=== PATIENT | male | born 1940 | race Caucasian/White ===

== ENCOUNTER → 2019-09-21 | Day surgery (SDC) | payer OTHER ==
[~2019-09-21] VITALS: Ht 180.3 cm; Wt 81.6 kg
[~2019-09-21] MED LIST: AZIL40TA3 PO; BUPIVACAINE 0.25% INJ 50ML VIAL ONE; DILT240C35 PO; DOCU100T15 PO; ETOMIDATE (2MG/ML) 20ML VIAL IV ONE; HYDR-4833 PO; HYDROmorphone HCL 2 MG/ML VL IV PRN; LIDOCAINE 1% (LOCAL ANESTH.) PF 5ml SDV ONE; LIDOCAINE 1% HCL (LOCAL ANESTH.) INJ 20ML MDV ONE; LIDOCAINE HCL 2% TOP JELLY 5ML TOP ONE; METOCLOPRAMIDE HCL 5MG/ml INJ 2ml VIAL ONE; MIDAZOLAM HCL 1MG/1ML-2 ML VIAL ONE; NALOXONE HCL 0.4 MG/ML VIAL IV PRN; ONDANSETRON HCL 4 MG/2 ML VIAL IV PRN; PROPOFOL 10 MG/ML 20 ML IV ONE; SUCCINYLCHOLINE CHLORIDE 20 MG/ML 10ML VIAL IV ONE; ceFAZolin 1GM/50ML 100 ML IV ONE; fentaNYL CITRATE 100 MCG/2 ML VL ONE
[2019-09-21] MEDS: HYDROmorphone HCL 2 MG/ML VL IV PRN ×2 (09:28→09:38)
[2019-09-21 10:05] VITALS: BP 141/67
== END | disposition home or self-care (01) ==
LOC: SUR 05:45
PROVIDERS: ATTEND Orthopaedic Surgery Adult Reconstructive Orthopaedic Surgery
DX: S52.571A Other intraarticular fracture of lower end of right radius, initial encounter for closed fracture (principal); I12.9 Hypertensive chronic kidney disease with stage 1 through stage 4 chronic kidney disease, or unspecified chronic kidney disease; N18.3 Chronic kidney disease, stage 3 (moderate); R73.03 Prediabetes; Z79.899 Other long term (current) drug therapy; Z98.890 Other specified postprocedural states; W19.XXXA Unspecified fall, initial encounter; Y93.89 Activity, other specified; Y92.89 Other specified places as the place of occurrence of the external cause; Y99.8 Other external cause status
CPT/HCPCS: 25609; 73100; C1713; J0330; J0690; J1170; J2001; J2250; J2704; J2765; J3010; J3490; 76001

== ENCOUNTER 2020-11-27 08:09 | Day surgery (SDC) | payer OTHER ==
[2020-11-22 10:49] LABS: Basophils # (auto) 0.1 10 ^3/uL (0-0.2); Eosinophils # (auto) 0.3 10 ^3/uL (0-0.8); Eosinophils % (auto) 4.5 % (0.0-7.0); Hematocrit 34.2 % (41.0-53.0); Hemoglobin 11.9 g/dL (13.5-17.5); Lymphocytes # (auto) 1.2 10 ^3/uL (0.4-5.4); Lymphocytes % (auto) 21.1 % (10.0-50.0); Mean Corpuscular Hemoglobin 30.4 pg (28.0-32.0); Mean Corpuscular Hgb Conc. 34.9 g/dL (32.0-36.0); Mean Corpuscular Volume 87.1 fL (80.0-100.0); Monocytes # (auto) 0.6 10 ^3/uL (0-1.3); Neutrophils # (auto) 3.5 10 ^3/uL (1.6-8.6); Neutrophils % (auto) 63.4 % (37.0-80.0); Red Blood Cells 3.93 10^6/uL (4.5-5.90); Red Cell Distribution Width 14.3 % (11.8-14.3); White Blood Cell 5.6 10^3/uL (4.4-10.8)
[2020-11-22 10:52] LABS: Urine Bacteria NONE SEEN /hpf (None Seen); Urine Blood TRACE /uL (Negative); Urine Specific Gravity 1.009 (1.001-1.035); Urine WBC 1 /hpf (0 - 3)
[2020-11-22 11:06] LABS: INR 1.05 (0.9-1.15); Partial Thromboplastin Time 31.1 sec (23.0-31.2)
[2020-11-22 11:28] LABS: Albumin 3.2 g/dL (3.4-5.0); Calcium 9.2 mg/dL (8.5-10.1); Potassium 4.4 mmol/L (3.5-5.1)
[2020-11-22 11:32] LABS: BUN/Creatinine Ratio 8.9; Bilirubin, Total 0.6 mg/dL (0.2-1.0); Total Protein 7.1 g/dL (6.4-8.2)
[~2020-11-27] VITALS: Ht 180.3 cm; Wt 86.2 kg
[~2020-11-27 08:09] MED LIST changes: -AZIL40TA3 PO; -BUPIVACAINE 0.25% INJ 50ML VIAL ONE; +CLON0.1T PO; -DOCU100T15 PO; -ETOMIDATE (2MG/ML) 20ML VIAL IV ONE; -HYDR-4833 PO; -HYDROmorphone HCL 2 MG/ML VL IV PRN; -LIDOCAINE 1% (LOCAL ANESTH.) PF 5ml SDV ONE; -LIDOCAINE 1% HCL (LOCAL ANESTH.) INJ 20ML MDV ONE; -LIDOCAINE HCL 2% TOP JELLY 5ML TOP ONE; -METOCLOPRAMIDE HCL 5MG/ml INJ 2ml VIAL ONE; -MIDAZOLAM HCL 1MG/1ML-2 ML VIAL ONE; -NALOXONE HCL 0.4 MG/ML VIAL IV PRN; -ONDANSETRON HCL 4 MG/2 ML VIAL IV PRN; -PROPOFOL 10 MG/ML 20 ML IV ONE; -SUCCINYLCHOLINE CHLORIDE 20 MG/ML 10ML VIAL IV ONE; -ceFAZolin 1GM/50ML 100 ML IV ONE; -fentaNYL CITRATE 100 MCG/2 ML VL ONE
[2020-11-27] MEDS ORDERED: ceFAZolin 1GM/50ML 50 ML IV ONE (08:32)
[2020-11-27] MEDS ORDERED: dilTIAZem 120MG ER CAP PO ONE (09:00)
[2020-11-27] MEDS ORDERED: ROCURONIUM 10MG/ML 10ML VIAL IV ONE (09:38)
[2020-11-27] MEDS ORDERED: LIDOCAINE 2% (LOCAL ANESTH.) PF 5ml SDV ONE (09:38)
[2020-11-27] MEDS ORDERED: MIDAZOLAM HCL 2MG/2ML 2ml VIAL (1mg/ml) ONE (09:38)
[2020-11-27] MEDS ORDERED: PROPOFOL 10 MG/ML 20 ML IV ONE (09:38)
[2020-11-27] MEDS ORDERED: fentaNYL CITRATE 100 MCG/2 ML VL ONE (09:39)
[2020-11-27] MEDS ORDERED: BUPIVACAINE W/ EPINEPH 0.25% INJ 50ML MDV ONE (10:04)
[2020-11-27] MEDS ORDERED: GLYCOPYRROLATE 0.2 MG/ML 1ML VIAL ONE (10:47)
[2020-11-27] MEDS ORDERED: NEOSTIGMINE 1 MG/ML INJ (10mg/10ML VIAL) ONE (10:47)
[2020-11-27 11:15] VITALS: BP 167/75
[2020-11-27] MEDS ORDERED: ONDANSETRON HCL 4 MG/2 ML VIAL IV PRN (11:15)
== END 2020-11-27 11:32 | disposition home or self-care (01) ==
LOC: SUR 08:09
PROVIDERS: ATTEND Surgery
DX: Z49.01 Encounter for fitting and adjustment of extracorporeal dialysis catheter (principal); I12.0 Hypertensive chronic kidney disease with stage 5 chronic kidney disease or end stage renal disease; N18.6 End stage renal disease; D64.9 Anemia, unspecified; Z20.822 Contact with and (suspected) exposure to COVID-19; Z98.890 Other specified postprocedural states; Z79.899 Other long term (current) drug therapy
CPT/HCPCS: 36415; 49324; 80053; 81001; 85025; 85610; 85730; J0690; J2001; J2250; J2704; J3010; J7030; U0003

== ENCOUNTER → 2021-09-03 | Day surgery (SDC) | payer OTHER ==
[~2021-09-03] VITALS: Ht 177.8 cm; Wt 77.1 kg
[~2021-09-03] MED LIST changes: +BUPIVACAINE 0.5% MPF INJ 30ML SDV IJ ONE; -CLON0.1T PO; +DexAMETHasone SOD PHOS 10MG/1ML VIAL INJ ONE; +FURO20TA3 PO; +HYDROmorphone HCL 2 MG/ML VL IV PRN; +LABETALOL HCL 5 MG/ML 4ML SYRINGE IV PRN; +LIDOCAINE 1%-Mpf/Epinephrine 1:200,000 ONE; +LIDOCAINE W/ EPINEPHRINE 1% 20ML VIAL ONE; +MIDAZOLAM HCL 2MG/2ML 2ml VIAL (1mg/ml) IV PRN; +MIDAZOLAM HCL 2MG/2ML 2ml VIAL (1mg/ml) ONE; +MORPHINE SULFATE 4 MG/ML SYR/VIAL IV PRN; +ONDANSETRON HCL 4 MG/2 ML VIAL IV PRN; +ceFAZolin 1GM/50ML 100 ML IV ONE; +diphenhdrAMINE HCL 50 MG/1 ML VL ONE; +ePHEDrine SULFATE 50 MG/ML AMP IV PRN; +fentaNYL CITRATE 100 MCG/2 ML VL ONE
[2021-09-03 10:00] VITALS: BP 149/73
== END | disposition home or self-care (01) ==
LOC: SUR 06:14
PROVIDERS: ATTEND Surgery
DX: K40.20 Bilateral inguinal hernia, without obstruction or gangrene, not specified as recurrent (principal); I12.0 Hypertensive chronic kidney disease with stage 5 chronic kidney disease or end stage renal disease; N18.6 End stage renal disease; I25.10 Atherosclerotic heart disease of native coronary artery without angina pectoris; Z98.41 Cataract extraction status, right eye; Z87.891 Personal history of nicotine dependence; Z98.42 Cataract extraction status, left eye; Z99.2 Dependence on renal dialysis; Z20.822 Contact with and (suspected) exposure to COVID-19
CPT/HCPCS: 49505; 86850; 86900; 86901; J0690; J1100; J1200; J2001; J2250; J3010; J3490; Q4140; U0003

== ENCOUNTER 2023-06-01 10:11 | Inpatient (IN) | payer OTHER ==
[~2023-06-01] VITALS: Ht 175.3 cm; Wt 85.1 kg
[~2023-06-01 10:11] MED LIST changes: -BUPIVACAINE 0.5% MPF INJ 30ML SDV IJ ONE; -DexAMETHasone SOD PHOS 10MG/1ML VIAL INJ ONE; -HYDROmorphone HCL 2 MG/ML VL IV PRN; -LABETALOL HCL 5 MG/ML 4ML SYRINGE IV PRN; -LIDOCAINE 1%-Mpf/Epinephrine 1:200,000 ONE; -LIDOCAINE W/ EPINEPHRINE 1% 20ML VIAL ONE; -MIDAZOLAM HCL 2MG/2ML 2ml VIAL (1mg/ml) IV PRN; -MIDAZOLAM HCL 2MG/2ML 2ml VIAL (1mg/ml) ONE; -MORPHINE SULFATE 4 MG/ML SYR/VIAL IV PRN; -ONDANSETRON HCL 4 MG/2 ML VIAL IV PRN; -ceFAZolin 1GM/50ML 100 ML IV ONE; -diphenhdrAMINE HCL 50 MG/1 ML VL ONE; -ePHEDrine SULFATE 50 MG/ML AMP IV PRN; -fentaNYL CITRATE 100 MCG/2 ML VL ONE
[2023-06-01 12:14] LABS: Basophils # (auto) 0.1 10 ^3/uL (0-0.2); Basophils % (auto) 0.8 % (0.0-2.0); Eosinophils # (auto) 0.4 10 ^3/uL (0-0.8); Eosinophils % (auto) 5.7 % (0.0-7.0); Hematocrit 32.5 % (41.0-53.0); Lymphocytes % (auto) 14.3 % (10.0-50.0); Mean Corpuscular Hemoglobin 32.6 pg (28.0-32.0); Mean Corpuscular Hgb Conc. 33.9 g/dL (32.0-36.0); Mean Corpuscular Volume 96.1 fL (80.0-100.0); Monocytes # (auto) 0.5 10 ^3/uL (0-1.3); Monocytes % (auto) 6.6 % (0.0-12.0); Neutrophils # (auto) 5.1 10 ^3/uL (1.6-8.6); Neutrophils % (auto) 72.6 % (37.0-80.0); Red Blood Cells 3.38 10^6/uL (4.5-5.90)
[2023-06-01 12:31] LABS: INR 1.14 (0.9-1.15); Partial Thromboplastin Time 36.6 SEC (24.5-34.5); Prothrombin Time 11.9 sec (9.3-11.8)
[2023-06-01 12:46] LABS: Alanine Aminotransferase 24 U/L (7-40); Albumin 3.7 g/dL (3.2-4.8); Alkaline Phosphatase 70 U/L (46-116); Anion Gap 16.8 (5-15); Aspartate Aminotransferase 25 U/L (13-40); BUN/Creatinine Ratio 4.7 (10.0-20.0); Bilirubin, Total 0.2 mg/dL (0.2-1.0); Blood Urea Nitrogen 79 mg/dL (9-23); Calcium 8.7 mg/dL (8.5-10.1); Carbon Dioxide 21.2 mmol/L (20-30); Chloride 98 mmol/L (98-107); Glucose 84 mg/dL (74-106); Potassium 4.8 mmol/L (3.5-5.1); Sodium 136 mmol/L (136-145)
[2023-06-01 12:47] LABS: Total Protein 7.1 g/dL (5.7-8.2)
[2023-06-01] MEDS ORDERED: GASTROGRAFIN 120 ML SOL ONE (13:50)
[2023-06-01] MEDS ORDERED: NITROGLYCERIN 0.4 MG SL TAB SL PRN (16:00)
[2023-06-01] MEDS ORDERED: MORPHINE SULFATE INJ 2 MG/ml SYRG IV PRN (16:00)
[2023-06-01 17:00] VITALS: PULSE 73; RESP 18; O2SAT 98
[2023-06-01] MEDS: hydrALAZINE HCL 20 MG/ML VL IV PRN (17:47)
[2023-06-01 19:25] VITALS: PULSE 85; RESP 18; O2SAT 94
[2023-06-02 05:53] LABS: Anion Gap 17.3 (5-15); Carbon Dioxide 21.7 mmol/L (20-30); Chloride 99 mmol/L (98-107); Potassium 4.6 mmol/L (3.5-5.1); Sodium 138 mmol/L (136-145)
[2023-06-02 05:54] LABS: Calcium 8.6 mg/dL (8.5-10.1)
[2023-06-02 05:59] LABS: BUN/Creatinine Ratio 5.2 (10.0-20.0); Basophils # (auto) 0.1 10 ^3/uL (0-0.2); Basophils % (auto) 0.9 % (0.0-2.0); Eosinophils # (auto) 0.3 10 ^3/uL (0-0.8); Eosinophils % (auto) 4.7 % (0.0-7.0); Glucose 90 mg/dL (74-106); Hematocrit 29.7 % (41.0-53.0); Hemoglobin 10.4 g/dL (13.5-17.5); Lymphocytes # (auto) 0.8 10 ^3/uL (0.4-5.4); Lymphocytes % (auto) 11.7 % (10.0-50.0); Mean Corpuscular Hemoglobin 33.4 pg (28.0-32.0); Mean Corpuscular Hgb Conc. 35.1 g/dL (32.0-36.0); Mean Corpuscular Volume 95.3 fL (80.0-100.0); Monocytes # (auto) 0.5 10 ^3/uL (0-1.3); Monocytes % (auto) 6.5 % (0.0-12.0); Neutrophils # (auto) 5.4 10 ^3/uL (1.6-8.6); Neutrophils % (auto) 76.2 % (37.0-80.0); Red Blood Cells 3.12 10^6/uL (4.5-5.90); White Blood Cell 7.1 10^3/uL (4.4-10.8)
[2023-06-02 06:26] LABS: Blood Urea Nitrogen 87 mg/dL (9-23)
[2023-06-02 07:35] VITALS: PULSE 72; RESP 14; O2SAT 95
[2023-06-02] MEDS: dilTIAZem 120MG ER CAP PO SCH (12:34)
[2023-06-02] MEDS: CALCIUM ACETATE 667 MG CAP PO SCH ×3 (12:35→18:03)
[2023-06-02] MEDS: FUROSEMIDE 20 MG TAB PO SCH (12:35)
[2023-06-02] MEDS ORDERED: EPOETIN ALFA-EPBX 10,000 UNIT/1ML VIAL SC ONE (15:15)
[2023-06-02 17:14] VITALS: BP 145/100; PULSE 72; PULSE 78; RESP 16; TEMP 97.8; O2SAT 96; O2SAT 98
[2023-06-02 17:26] VITALS: BP 153/109; PULSE 86; RESP 18; TEMP 98; O2SAT 95
[2023-06-02 20:00] VITALS: BP 145/75; PULSE 76; PULSE 79; RESP 20; TEMP 98.3; O2SAT 95
[2023-06-02 22:00] VITALS: BP 145/75; PULSE 76; RESP 20; TEMP 98.3; O2SAT 95
[2023-06-03] VITALS (8 sets, daily range): BP systolic 134–153; BP diastolic 72–87; PULSE 66–76; RESP 17–20; TEMP 97.5–98.1; O2SAT 93–95
[2023-06-03 06:48] LABS: INR 1.14 (0.9-1.15); Partial Thromboplastin Time 37.9 SEC (24.5-34.5); Prothrombin Time 11.9 sec (9.3-11.8)
[2023-06-03 07:03] LABS: Chloride 99 mmol/L (98-107); Potassium 4.5 mmol/L (3.5-5.1); Sodium 136 mmol/L (136-145)
[2023-06-03 07:04] LABS: Anion Gap 15.5 (5-15); Calcium 9.1 mg/dL (8.7-10.4); Carbon Dioxide 21.5 mmol/L (20-30)
[2023-06-03 07:09] LABS: BUN/Creatinine Ratio 5.1 (10.0-20.0); Glucose 98 mg/dL (74-106)
[2023-06-03 07:12] LABS: Blood Urea Nitrogen 85 mg/dL (9-23)
[2023-06-03 07:40] LABS: Basophils # (auto) 0.1 10 ^3/uL (0-0.2); Basophils % (auto) 0.9 % (0.0-2.0); Eosinophils # (auto) 0.5 10 ^3/uL (0-0.8); Eosinophils % (auto) 7.1 % (0.0-7.0); Hematocrit 33.1 % (41.0-53.0); Hemoglobin 11.4 g/dL (13.5-17.5); Lymphocytes # (auto) 1.2 10 ^3/uL (0.4-5.4); Lymphocytes % (auto) 15.7 % (10.0-50.0); Mean Corpuscular Hemoglobin 32.9 pg (28.0-32.0); Mean Corpuscular Hgb Conc. 34.4 g/dL (32.0-36.0); Mean Corpuscular Volume 95.7 fL (80.0-100.0); Monocytes # (auto) 0.4 10 ^3/uL (0-1.3); Monocytes % (auto) 5.9 % (0.0-12.0); Neutrophils # (auto) 5.2 10 ^3/uL (1.6-8.6); Neutrophils % (auto) 70.4 % (37.0-80.0); Nucleated Red Blood Cells % 0.1 %; Red Blood Cells 3.46 10^6/uL (4.5-5.90); Red Cell Distribution Width 13.7 % (11.8-14.3); White Blood Cell 7.4 10^3/uL (4.4-10.8)
[2023-06-03] MEDS: CALCIUM ACETATE 667 MG CAP PO SCH ×3 (08:00→17:32)
[2023-06-03] MEDS: dilTIAZem 120MG ER CAP PO SCH (09:38)
[2023-06-03] MEDS: FUROSEMIDE 20 MG TAB PO SCH (09:39)
[2023-06-03 09:44] LABS: Hepatitis B Surface Antigen Negative (Negative)
[2023-06-03 10:05] LABS: Hepatitis C Antibody Negative (Negative)
[2023-06-03] MEDS ORDERED: SODIUM CHL 0.9% 1000 ML BAG XX ONE (13:15)
[2023-06-03] MEDS ORDERED: SENNA 8.6 MG TAB PO ONE (14:45)
[2023-06-03] MEDS: SENNA 8.6 MG TAB PO SCH (21:10)
[2023-06-04] VITALS (12 sets, daily range): BP systolic 127–153; BP diastolic 55–102; PULSE 50–96; RESP 15–20; TEMP 97.2–98.4; O2SAT 90–96
[2023-06-04 06:49] LABS: Chloride 99 mmol/L (98-107); Potassium 4.9 mmol/L (3.5-5.1); Sodium 136 mmol/L (136-145)
[2023-06-04 06:50] LABS: Anion Gap 17.2 (5-15); Carbon Dioxide 19.8 mmol/L (20-30)
[2023-06-04 06:51] LABS: Calcium 9.1 mg/dL (8.7-10.4)
[2023-06-04 06:55] LABS: Glucose 96 mg/dL (74-106)
[2023-06-04 06:56] LABS: BUN/Creatinine Ratio 4.8 (10.0-20.0); INR 1.13 (0.9-1.15); Partial Thromboplastin Time 35.1 SEC (24.5-34.5); Prothrombin Time 11.8 sec (9.3-11.8)
[2023-06-04 06:59] LABS: Blood Urea Nitrogen 84 mg/dL (9-23)
[2023-06-04 07:02] LABS: Basophils # (auto) 0.1 10 ^3/uL (0-0.2); Basophils % (auto) 1.4 % (0.0-2.0); Eosinophils # (auto) 0.6 10 ^3/uL (0-0.8); Eosinophils % (auto) 6.6 % (0.0-7.0); Hemoglobin 10.7 g/dL (13.5-17.5); Lymphocytes # (auto) 1.1 10 ^3/uL (0.4-5.4); Lymphocytes % (auto) 12.9 % (10.0-50.0); Mean Corpuscular Hgb Conc. 33.3 g/dL (32.0-36.0); Mean Corpuscular Volume 96.1 fL (80.0-100.0); Monocytes # (auto) 0.5 10 ^3/uL (0-1.3); Monocytes % (auto) 5.5 % (0.0-12.0); Neutrophils # (auto) 6.3 10 ^3/uL (1.6-8.6); Neutrophils % (auto) 73.6 % (37.0-80.0); Nucleated Red Blood Cells % 0.1 %; Red Blood Cells 3.33 10^6/uL (4.5-5.90); Red Cell Distribution Width 13.9 % (11.8-14.3); White Blood Cell 8.6 10^3/uL (4.4-10.8)
[2023-06-04] MEDS: CALCIUM ACETATE 667 MG CAP PO SCH ×3 (08:00→18:00)
[2023-06-04] MEDS ORDERED: HEPARIN SODIUM (PORCINE) 5000 UNITS/ML 1ML VIAL ONE (09:39)
[2023-06-04] MEDS ORDERED: fentaNYL CITRATE 100 MCG/2 ML VL ONE (09:40)
[2023-06-04] MEDS ORDERED: LIDOCAINE 2%HCL (LOCAL ANESTH.) INJ 20ML MDV ONE (09:40)
[2023-06-04] MEDS ORDERED: MIDAZOLAM HCL 2MG/2ML 2ml VIAL (1mg/ml) ONE (09:40)
[2023-06-04] MEDS: FUROSEMIDE 20 MG TAB PO SCH (10:00)
[2023-06-04] MEDS: dilTIAZem 120MG ER CAP PO SCH (10:00)
[2023-06-04] MEDS: SENNA 8.6 MG TAB PO SCH (21:09)
[2023-06-05] VITALS (8 sets, daily range): BP systolic 130–164; BP diastolic 74–94; PULSE 78–88; RESP 16–20; TEMP 98–98.5; O2SAT 93–99
[2023-06-05] MEDS: hydrALAZINE HCL 20 MG/ML VL IV PRN (04:51)
[2023-06-05 06:45] LABS: Basophils # (auto) 0.1 10 ^3/uL (0-0.2); Basophils % (auto) 0.7 % (0.0-2.0); Eosinophils # (auto) 0.3 10 ^3/uL (0-0.8); Eosinophils % (auto) 4.3 % (0.0-7.0); Hematocrit 34.9 % (41.0-53.0); Hemoglobin 11.6 g/dL (13.5-17.5); Lymphocytes # (auto) 0.8 10 ^3/uL (0.4-5.4); Lymphocytes % (auto) 10.6 % (10.0-50.0); Mean Corpuscular Hemoglobin 32.3 pg (28.0-32.0); Mean Corpuscular Hgb Conc. 33.2 g/dL (32.0-36.0); Mean Corpuscular Volume 97.4 fL (80.0-100.0); Monocytes # (auto) 0.5 10 ^3/uL (0-1.3); Monocytes % (auto) 6.1 % (0.0-12.0); Neutrophils # (auto) 6.2 10 ^3/uL (1.6-8.6); Neutrophils % (auto) 78.3 % (37.0-80.0); Red Blood Cells 3.59 10^6/uL (4.5-5.90); White Blood Cell 7.9 10^3/uL (4.4-10.8)
[2023-06-05] MEDS: CALCIUM ACETATE 667 MG CAP PO SCH ×3 (07:54→17:50)
[2023-06-05 08:21] LABS: Chloride 102 mmol/L (98-107); Potassium 4.5 mmol/L (3.5-5.1); Sodium 138 mmol/L (136-145)
[2023-06-05 08:22] LABS: Anion Gap 12.6 (5-15); Calcium 9.1 mg/dL (8.5-10.1); Carbon Dioxide 23.4 mmol/L (20-30)
[2023-06-05 08:27] LABS: Glucose 100 mg/dL (74-106)
[2023-06-05 08:40] LABS: Blood Urea Nitrogen 42 mg/dL (9-23)
[2023-06-05] MEDS: dilTIAZem 120MG ER CAP PO SCH (10:26)
[2023-06-05] MEDS: FUROSEMIDE 20 MG TAB PO SCH (10:26)
[2023-06-05] MEDS: FUROSEMIDE 100 MG/10ML VIAL IV SCH (17:51)
[2023-06-05] MEDS: SENNA 8.6 MG TAB PO SCH (22:03)
[2023-06-06] VITALS (7 sets, daily range): BP systolic 112–147; BP diastolic 69–90; PULSE 57–96; RESP 16–20; TEMP 97.6–98.7; O2SAT 92–98
[2023-06-06] MEDS: FUROSEMIDE 100 MG/10ML VIAL IV SCH ×2 (06:25→17:48)
[2023-06-06] MEDS: CALCIUM ACETATE 667 MG CAP PO SCH ×3 (09:04→18:04)
[2023-06-06] MEDS: dilTIAZem 120MG ER CAP PO SCH (10:00)
[2023-06-06] MEDS ORDERED: HEPARIN 1,000 UNITS/ml 1ML VIAL IV ONE ×2 (13:30)
[2023-06-06] MEDS: SENNA 8.6 MG TAB PO SCH (21:57)
[2023-06-07] VITALS (7 sets, daily range): BP systolic 122–151; BP diastolic 69–84; PULSE 76–99; RESP 13–20; TEMP 97.5–98.5; O2SAT 90–100
[2023-06-07] MEDS: FUROSEMIDE 100 MG/10ML VIAL IV SCH ×2 (05:23→17:56)
[2023-06-07] MEDS: CALCIUM ACETATE 667 MG CAP PO SCH ×3 (08:00→18:00)
[2023-06-07 09:22] LABS: Hepatitis B Surface Antigen Negative (Negative)
[2023-06-07 09:35] LABS: INR 1.08 (0.9-1.15); Partial Thromboplastin Time 34.9 SEC (24.5-34.5); Prothrombin Time 11.3 sec (9.3-11.8)
[2023-06-07 09:43] LABS: Hepatitis A Ab IgM Negative; Hepatitis B Core IgM Negative
[2023-06-07 09:44] LABS: Hepatitis C Antibody Negative (Negative)
[2023-06-07] MEDS: dilTIAZem 120MG ER CAP PO SCH (10:00)
[2023-06-07] MEDS ORDERED: ceFAZolin 1GM/50ML 100 ML IV ONE (10:59)
[2023-06-07] MEDS ORDERED: SUCCINYLCHOLINE CHLORIDE 20 MG/ML 10ML VIAL IV ONE (14:56)
[2023-06-07] MEDS ORDERED: fentaNYL CITRATE 100 MCG/2 ML VL ONE (14:59)
[2023-06-07] MEDS ORDERED: MIDAZOLAM HCL 2MG/2ML 2ml VIAL (1mg/ml) ONE (14:59)
[2023-06-07] MEDS ORDERED: DexAMETHasone SOD PHOS 10MG/1ML VIAL INJ ONE (15:43)
[2023-06-07] MEDS ORDERED: ETOMIDATE (2MG/ML) 20ML VIAL IV ONE (15:43)
[2023-06-07] MEDS ORDERED: ONDANSETRON HCL 4 MG/2 ML VIAL IV ONE (17:59)
[2023-06-07] MEDS ORDERED: PHENYLEPHRINE HCL 10 MG/ML VL IV ONE (17:59)
[2023-06-07] MEDS: SENNA 8.6 MG TAB PO SCH (21:56)
[2023-06-08 05:00] VITALS: BP 137/97; PULSE 90; RESP 18; TEMP 97.7; O2SAT 96
[2023-06-08] MEDS: FUROSEMIDE 100 MG/10ML VIAL IV SCH (05:46)
[2023-06-08 08:00] VITALS: PULSE 93
[2023-06-08] MEDS: CALCIUM ACETATE 667 MG CAP PO SCH ×2 (08:02→11:58)
[2023-06-08 08:58] VITALS: BP 159/89; PULSE 82; RESP 17; TEMP 97.6; O2SAT 97
[2023-06-08] MEDS: dilTIAZem 120MG ER CAP PO SCH (10:15)
[2023-06-08 13:00] VITALS: BP 123/79; PULSE 102; RESP 18; TEMP 97.8; O2SAT 96
[2023-06-08 16:59] VITALS: BP 113/72; PULSE 63; RESP 20; TEMP 97.8; O2SAT 95
[2023-06-08] MEDS ORDERED: EPOETIN ALFA-EPBX 4,000 UNIT/ML VIAL SC ONE (21:00)
== END 2023-06-08 18:00 | disposition home health service (06) | DRG 673 ==
LOC: ER 10:11 → TELE 16:07 → TELE-WESTW 06-02 17:02
PROVIDERS: ADMIT Internal Medicine; ATTEND Internal Medicine
PROC: 0JH63XZ Insertion of Tunneled Vascular Access Device into Chest Subcutaneous Tissue and Fascia, Percutaneous Approach (ICD-10-PCS; 2023-06-04)
PROC: 5A1D70Z Performance of Urinary Filtration, Intermittent, Less than 6 Hours Per Day (ICD-10-PCS; 2023-06-04)
PROC: 02H633Z Insertion of Infusion Device into Right Atrium, Percutaneous Approach (ICD-10-PCS; 2023-06-04)
PROC: B5181ZA Fluoroscopy of Superior Vena Cava using Low Osmolar Contrast, Guidance (ICD-10-PCS; 2023-06-04)
PROC: B548ZZA Ultrasonography of Superior Vena Cava, Guidance (ICD-10-PCS; 2023-06-04)
PROC: 5A1D70Z Performance of Urinary Filtration, Intermittent, Less than 6 Hours Per Day (ICD-10-PCS; 2023-06-06)
PROC: 0WWG43Z Revision of Infusion Device in Peritoneal Cavity, Percutaneous Endoscopic Approach (ICD-10-PCS; principal; 2023-06-07 15:02)
PROC: 5A1D70Z Performance of Urinary Filtration, Intermittent, Less than 6 Hours Per Day (ICD-10-PCS; 2023-06-08)
DX: T82.41XA Breakdown (mechanical) of vascular dialysis catheter, initial encounter (principal); N18.6 End stage renal disease; I12.0 Hypertensive chronic kidney disease with stage 5 chronic kidney disease or end stage renal disease; E83.39 Other disorders of phosphorus metabolism; D63.1 Anemia in chronic kidney disease; Y81.2 Prosthetic and other implants, materials and accessory general- and plastic-surgery devices associated with adverse incidents; Y92.89 Other specified places as the place of occurrence of the external cause; Z99.2 Dependence on renal dialysis; Z88.6 Allergy status to analgesic agent
CPT/HCPCS: 36415; 36558; 71045; 74018; 76000; 76937; 77001; 80048; 80053; 80074; 82306; 82565; 83880; 83970; 84100; 84520; 85025; 85610; 85730; 86803; 86850; 86900; 86901; 87081; 87340; 90935; 93005; 93306; 96374; 97110; 97116; 97163; 97530; 99152; C1894; G0378; J0330; J0690; J1100; J1642; J2250; J2405